=== PATIENT | male | born 1955 | race Caucasian/White ===

== ENCOUNTER → 2019-09-13 | Outpatient (REF) | payer MEDICARE | LOC: M LABWUC 08:20 | PROVIDERS: ATTEND Nurse Practitioner Family | DX: Z12.5 Encounter for screening for malignant neoplasm of prostate (principal); R97.20 Elevated prostate specific antigen [PSA] ==

== ENCOUNTER → 2020-10-02 | Outpatient (CLI) | payer MEDICARE ==
[~2020-10-02] MED LIST: PROHANCE 279.3MG/ML 15ML VIAL ONE
--- NOTE | 2020-10-03 08:21 | REPVR ---
PROCEDURE INFORMATION: Exam: MR Head Without and With Contrast Exam date and time: 10/02/2020 3:18 PM Age: 65 years old Clinical indication: Dizziness; Additional info: Ataxia TECHNIQUE: Imaging protocol: MR of the head without and with intravenous contrast. Contrast material: PROHANCE; Contrast volume: 25 ml; Contrast route: INTRAVENOUS (IV); COMPARISON: No relevant prior studies available. FINDINGS: Brain: There are nonspecific few foci of T2/FLAIR hyperintensities in the left frontal and parietal white matter with no corresponding restricted diffusion or abnormal enhancement. Similar tiny focus seen in the left thalamus. Cerebral ventricles: Normal. No ventriculomegaly. Bones/joints: Unremarkable. Paranasal sinuses: Normal as visualized. No acute sinusitis. Mastoid air cells: Normal as visualized. No mastoid effusion. Orbital cavity: Unremarkable. Soft tissues: Unremarkable. IMPRESSION: 1. No MRI evidence of acute infarct. 2. No MRI evidence abnormal intracranial enhancement. 3. Nonspecific few scattered foci of left frontal and parietal white matter T2 hyperintensities with no abnormal enhancement or restricted diffusion likely foci of chronic microangiopathic changes versus small demyelinating plaques. 4. Tiny focus of left thalamic T2 hyperintensity could represent a tiny focus of chronic lacunar infarct. Electronically signed by: Mauricio Peraza On 10/03/2020 08:21:14 AM
== END ==
LOC: M PLAIMG 13:49
PROVIDERS: ATTEND Internal Medicine
DX: R27.0 Ataxia, unspecified (principal)
CPT/HCPCS: 70553; A9576

== ENCOUNTER → 2020-10-25 | Outpatient (CLI) | payer SELFPAY | LOC: M LABSMTC 10:35 | PROVIDERS: ATTEND Physical Medicine & Rehabilitation Pain Medicine | DX: Z20.822 Contact with and (suspected) exposure to COVID-19 (principal) ==